=== PATIENT | female | born 1955 | race Caucasian/White ===

== ENCOUNTER 2022-03-30 21:22 | Inpatient (IN) ==
[2022-03-30 21:47] LABS: Basophils # 0.1 10*3/uL (0.0-0.2); Basophils % 0.6 % (0.0-0.8); Eosinophils # 0.2 10*3/uL (0.0-0.87); Eosinophils % 1.8 % (0.00-10.9); Immature Granulocytes % 0.6 %; Immature Granulocytes Absolute 0.07 #; Lymphocytes # 1.3 10*3/uL (1.4-4.0); Mean Corpuscular HGB Conc 28.1 GM/DL (32-36); Mean Corpuscular Volume 80.5 FL (87-102); Mean Platelet Volume 8.7 FL (9.6-12.0); Monocytes # 0.9 10*3/uL (0.11-0.8); Monocytes % 7.6 % (1.7-12.7); NRBC # 0.02 10*3/uL; Neutrophils % 78.4 % (38.7-73.9); Platelet Count 454 T/CUMM (130-400); Red Blood Count 2.21 MC/CUMM (3.8-5.5); Red Cell Distribution Width 16.4 % (9.3-17.3); White Blood Count 11.6 T/CUMM (4-12)
[2022-03-30 21:49] LABS: Hematocrit 17.8 VOL% (35.7-47.0)
[2022-03-30] MEDS ORDERED: LIDOCAINE 1%/EPI INJ 20 ML VIAL ONE (21:52)
[2022-03-30] MEDS ORDERED: ONDANSETRON 4 MG/2 ML VIAL IV STA (21:53)
[2022-03-30] MEDS ORDERED: PANTOPRAZOLE 40 MG VIAL IV STA (21:53)
[2022-03-30] MEDS ORDERED: SODIUM CHLORIDE 0.9% 1,000 ML IV PRN (21:55)
[2022-03-30 22:06] LABS: Alanine Aminotransferase 19 U/L (13-56); Albumin 3.8 G/DL (3.4-5.0); Alkaline Phosphatase 99 U/L (45-117); Aspartate Amino Transferase 13 U/L (0-37); Bilirubin,Total < 0.39 MG/DL (0.20-1.00); Blood Urea Nitrogen 19 MG/DL (7-18); Calcium 8.3 MG/DL (8.5-10.1); Carbon Dioxide 26 MMOL/L (21-32); Chloride 105 MMOL/L (98-107); Glucose 130 MG/DL (74-106); Osmolality,Calculated 282.4 MOS/KG (273-304); Potassium 4.1 MMOL/L (3.5-5.1); Sodium 140 MMOL/L (136-145); Total Protein 7.3 G/DL (6.4-8.2)
[2022-03-30 22:09] LABS: INR 0.9; PT Patient Result 10.4 SECS (10.1-12.1); Partial Thromboplastin Time 21.4 SECS (23.7-32.9)
[2022-03-30 22:13] LABS: Anisocytosis 1+; Hypochromia 1+; Macrocytosis 1+; Microcytosis 1+; Platelet Estimate Increased
[2022-03-30 22:14] LABS: Target Cells Slight
[2022-03-30] MEDS ORDERED: ONDANSETRON 4 MG/2 ML VIAL IV PRN (23:21)
[2022-03-30] MEDS ORDERED: hydrALAZINE 20 MG/1 ML VIAL IV PRN (23:21)
[2022-03-30] MEDS ORDERED: MORPHINE 2 MG/1 ML SYRINGE IV PRN (23:21)
[2022-03-30] MEDS ORDERED: guaiFENesin/DM ER 600-30 MG TABLET PO PRN (23:21)
[2022-03-30] MEDS ORDERED: ACETAMINOPHEN 325 MG TABLET PO PRN (23:21)
[2022-03-30] MEDS ORDERED: diphenhydrAMINE CAP 25 MG CAPSULE PO PRN (23:21)
[2022-03-30] MEDS ORDERED: NICOTINE 21 MG/24 HR PATCH TRANSDERM PRN (23:21)
[2022-03-31 01:06] LABS: Bacteria,Urine Occasional /HPF (Few); Mucus,Urine Occasional /LPF (Occasional); RBC,Urine 1 /HPF (0-4); Squamous Epithelial Cell,Urine Occasional /HPF (0-10)
[2022-03-31 01:07] LABS: Bilirubin,Urine Negative (Negative); Blood, Urine Negative (Negative); Glucose,Urine (UA) Negative (Negative); Ketones,Urine Negative (Negative); Nitrite,Urine Negative (Negative); Protein,Urine Trace mg/dL (Negative); Urine Appearance Clear (Clear); Urine Color Yellow (Yellow); Urine Specific Gravity 1.025 (1.001-1.035); Urine Urobilinogen 0.2 eU/dL (<2.0); Urine pH 5.5 (4.5-8.0)
[2022-03-31] MEDS ORDERED: FUROSEMIDE 20 MG/2 ML VIAL IV STA (02:45)
[2022-03-31] MEDS ORDERED: FUROSEMIDE 40 MG/4 ML VIAL IV STA (02:48)
[2022-03-31 04:04] LABS: Basophils # 0.1 10*3/uL (0.0-0.2); Basophils % 0.6 % (0.0-0.8); Eosinophils # 0.2 10*3/uL (0.0-0.87); Eosinophils % 1.4 % (0.00-10.9); Hematocrit 21.2 VOL% (35.7-47.0); Immature Granulocytes % 0.4 %; Immature Granulocytes Absolute 0.05 #; Lymphocytes # 2.3 10*3/uL (1.4-4.0); Lymphocytes % 20.6 % (21.3-54.2); Mean Corpuscular HGB Conc 29.2 GM/DL (32-36); Mean Corpuscular Volume 82.5 FL (87-102); Monocytes # 0.8 10*3/uL (0.11-0.8); Monocytes % 7.3 % (1.7-12.7); NRBC # 0.02 10*3/uL; Neutrophils % 69.7 % (38.7-73.9); Platelet Count 433 T/CUMM (130-400); Red Blood Count 2.57 MC/CUMM (3.8-5.5); White Blood Count 11.3 T/CUMM (4-12)
[2022-03-31 04:07] LABS: Hemoglobin 6.2 GM/DL (12.0-16.0)
[2022-03-31 04:17] LABS: Calcium 8.7 MG/DL (8.5-10.1); Osmolality,Calculated 278.5 MOS/KG (273-304); Potassium 3.7 MMOL/L (3.5-5.1)
[2022-03-31] MEDS ORDERED: NITROGLYCERIN SL 0.4 MG TABLET SL PRN (06:23)
[2022-03-31 08:27] LABS: % Iron Saturation 11.8 % (18-50); Ferritin 5.9 ng/mL (8-252)
[2022-03-31] MEDS ORDERED: PANTOPRAZOLE 40 MG TABLET PO SCH (09:00)
[2022-03-31] MEDS: PANTOPRAZOLE 40 MG VIAL IV SCH ×2 (09:05→20:12)
[2022-03-31] MEDS: carvediloL 6.25 MG TABLET PO SCH ×3 (09:08→20:15)
[2022-03-31] MEDS: ESCITALOPRAM 10 MG TABLET PO SCH ×2 (09:09→12:22)
[2022-03-31] MEDS: amLODIPine 2.5 MG TABLET PO SCH ×2 (09:09→12:22)
[2022-03-31] MEDS: ISOSORBIDE MONONITRATE 30 MG TABLET PO SCH ×2 (09:09→12:21)
[2022-03-31] MEDS: LACTATED RINGERS 1,000 ML IV SCH (09:54)
[2022-03-31 09:56] LABS: Hematocrit 25.7 VOL% (35.7-47.0); Hemoglobin 7.6 GM/DL (12.0-16.0)
[2022-03-31] MEDS ORDERED: ETOMIDATE 20 MG/10 ML VIAL IV ONE (10:37)
[2022-03-31] MEDS ORDERED: LIDOCAINE 2% 5 ML VIAL ONE (10:37)
[2022-03-31] MEDS ORDERED: propofoL 200 MG/20 ML VIAL IV ONE (10:37)
[2022-03-31] MEDS ORDERED: ONDANSETRON 4 MG/2 ML VIAL ONE (10:58)
[2022-03-31] MEDS ORDERED: EPINEPHrine 1 MG/ML VIAL ONE (11:11)
[2022-03-31 14:32] LABS: Hematocrit 26.1 VOL% (35.7-47.0); Hemoglobin 7.7 GM/DL (12.0-16.0)
[2022-03-31] MEDS: ROSUVASTATIN 20 MG TABLET PO SCH (20:15)
[2022-03-31] MEDS: POLYETHYLENE GLYCOL POWDER 17 GM PACK PO SCH (20:15)
[2022-03-31 21:21] LABS: Hematocrit 25.2 VOL% (35.7-47.0); Hemoglobin 7.6 GM/DL (12.0-16.0)
[2022-04-01 05:44] LABS: Calcium 8.8 MG/DL (8.5-10.1); Osmolality,Calculated 278.5 MOS/KG (273-304); Potassium 3.6 MMOL/L (3.5-5.1)
[2022-04-01 05:46] LABS: Basophils # 0.1 10*3/uL (0.0-0.2); Basophils % 0.8 % (0.0-0.8); Eosinophils # 0.3 10*3/uL (0.0-0.87); Eosinophils % 3.5 % (0.00-10.9); Hematocrit 25.5 VOL% (35.7-47.0); Hemoglobin 7.6 GM/DL (12.0-16.0); Immature Granulocytes % 0.5 %; Immature Granulocytes Absolute 0.04 #; Lymphocytes # 2.6 10*3/uL (1.4-4.0); Mean Corpuscular HGB Conc 29.8 GM/DL (32-36); Mean Corpuscular Volume 80.2 FL (87-102); Mean Platelet Volume 9.4 FL (9.6-12.0); Monocytes # 0.8 10*3/uL (0.11-0.8); Monocytes % 8.8 % (1.7-12.7); NRBC # 0.02 10*3/uL; Neutrophils % 56.4 % (38.7-73.9); Platelet Count 411 T/CUMM (130-400); Red Blood Count 3.18 MC/CUMM (3.8-5.5); Red Cell Distribution Width 17.3 % (9.3-17.3); White Blood Count 8.8 T/CUMM (4-12)
[2022-04-01 08:42] LABS: Hematocrit 24.6 VOL% (35.7-47.0); Hemoglobin 7.4 GM/DL (12.0-16.0)
[2022-04-01] MEDS: ISOSORBIDE MONONITRATE 30 MG TABLET PO SCH (09:44)
[2022-04-01] MEDS: amLODIPine 2.5 MG TABLET PO SCH (09:44)
[2022-04-01] MEDS: carvediloL 6.25 MG TABLET PO SCH ×2 (09:44→22:04)
[2022-04-01] MEDS: POLYETHYLENE GLYCOL POWDER 17 GM PACK PO SCH ×2 (09:44→22:04)
[2022-04-01] MEDS: ESCITALOPRAM 10 MG TABLET PO SCH (09:44)
[2022-04-01] MEDS: PANTOPRAZOLE 40 MG VIAL IV SCH ×2 (09:45→22:04)
[2022-04-01] MEDS: NICOTINE 21 MG/24 HR PATCH TRANSDERM SCH (09:45)
[2022-04-01] MEDS: LACTATED RINGERS 1,000 ML IV SCH (11:52)
[2022-04-01 15:01] LABS: Hematocrit 24.3 VOL% (35.7-47.0); Hemoglobin 7.1 GM/DL (12.0-16.0)
[2022-04-01 20:21] LABS: Hematocrit 24.1 VOL% (35.7-47.0); Hemoglobin 7.1 GM/DL (12.0-16.0)
[2022-04-01] MEDS: ROSUVASTATIN 20 MG TABLET PO SCH (22:04)
[2022-04-02 05:51] LABS: Basophils # 0.1 10*3/uL (0.0-0.2); Basophils % 0.6 % (0.0-0.8); Eosinophils # 0.4 10*3/uL (0.0-0.87); Eosinophils % 3.4 % (0.00-10.9); Hematocrit 24.7 VOL% (35.7-47.0); Immature Granulocytes % 0.4 %; Immature Granulocytes Absolute 0.05 #; Lymphocytes # 2.9 10*3/uL (1.4-4.0); Lymphocytes % 25.6 % (21.3-54.2); Mean Corpuscular HGB Conc 28.3 GM/DL (32-36); Mean Platelet Volume 9.4 FL (9.6-12.0); Monocytes # 0.9 10*3/uL (0.11-0.8); Monocytes % 7.9 % (1.7-12.7); Neutrophils % 62.1 % (38.7-73.9); Platelet Count 386 T/CUMM (130-400); Red Blood Count 3.05 MC/CUMM (3.8-5.5); Red Cell Distribution Width 17.7 % (9.3-17.3); White Blood Count 11.3 T/CUMM (4-12)
[2022-04-02 05:57] LABS: Calcium 8.5 MG/DL (8.5-10.1); Osmolality,Calculated 275.8 MOS/KG (273-304); Potassium 3.8 MMOL/L (3.5-5.1)
[2022-04-02 06:28] LABS: Platelet Estimate Normal
[2022-04-02 06:29] LABS: Anisocytosis 1+; Hypochromia Slight; Spherocytes Few
[2022-04-02] MEDS ORDERED: SODIUM CHLORIDE 0.9% 1,000 ML IV PRN (07:33)
[2022-04-02] MEDS: ISOSORBIDE MONONITRATE 30 MG TABLET PO SCH ×2 (10:00→10:32)
[2022-04-02] MEDS: carvediloL 6.25 MG TABLET PO SCH ×3 (10:00→20:02)
[2022-04-02] MEDS: ESCITALOPRAM 10 MG TABLET PO SCH (10:00)
[2022-04-02] MEDS: PANTOPRAZOLE 40 MG VIAL IV SCH (10:01)
[2022-04-02] MEDS: NICOTINE 21 MG/24 HR PATCH TRANSDERM SCH ×2 (10:01→10:33)
[2022-04-02] MEDS: POLYETHYLENE GLYCOL POWDER 17 GM PACK PO SCH ×3 (10:01→20:02)
[2022-04-02] MEDS: amLODIPine 2.5 MG TABLET PO SCH (10:01)
[2022-04-02] MEDS: LACTATED RINGERS 1,000 ML IV SCH (10:02)
[2022-04-02] MEDS: ASPIRIN CHEW 81 MG TABLET PO SCH (12:35)
[2022-04-02 19:47] LABS: Hematocrit 28.2 VOL% (35.7-47.0)
[2022-04-02 19:53] LABS: Hemoglobin 8.5 GM/DL (12.0-16.0)
[2022-04-02] MEDS: ROSUVASTATIN 20 MG TABLET PO SCH (20:02)
[2022-04-02] MEDS: PANTOPRAZOLE 40 MG TABLET PO SCH (20:02)
[2022-04-03 05:02] LABS: Basophils # 0.1 10*3/uL (0.0-0.2); Basophils % 0.6 % (0.0-0.8); Eosinophils # 0.4 10*3/uL (0.0-0.87); Eosinophils % 3.6 % (0.00-10.9); Hematocrit 29.1 VOL% (35.7-47.0); Hemoglobin 8.6 GM/DL (12.0-16.0); Immature Granulocytes % 0.6 %; Immature Granulocytes Absolute 0.07 #; Lymphocytes # 2.5 10*3/uL (1.4-4.0); Lymphocytes % 21.7 % (21.3-54.2); Mean Corpuscular HGB Conc 29.6 GM/DL (32-36); Mean Corpuscular Volume 82.4 FL (87-102); Mean Platelet Volume 8.9 FL (9.6-12.0); Monocytes % 9.2 % (1.7-12.7); Neutrophils % 64.3 % (38.7-73.9); Platelet Count 365 T/CUMM (130-400); Red Blood Count 3.53 MC/CUMM (3.8-5.5); Red Cell Distribution Width 17.7 % (9.3-17.3); White Blood Count 11.3 T/CUMM (4-12)
[2022-04-03 05:22] LABS: Calcium 8.6 MG/DL (8.5-10.1); Osmolality,Calculated 283.1 MOS/KG (273-304); Potassium 3.9 MMOL/L (3.5-5.1)
[2022-04-03] MEDS: carvediloL 6.25 MG TABLET PO SCH (08:28)
[2022-04-03] MEDS: POLYETHYLENE GLYCOL POWDER 17 GM PACK PO SCH (08:28)
[2022-04-03] MEDS: NICOTINE 21 MG/24 HR PATCH TRANSDERM SCH (08:28)
[2022-04-03] MEDS: ASPIRIN CHEW 81 MG TABLET PO SCH (08:28)
[2022-04-03] MEDS: ESCITALOPRAM 10 MG TABLET PO SCH (08:28)
[2022-04-03] MEDS: PANTOPRAZOLE 40 MG TABLET PO SCH (08:29)
[2022-04-03] MEDS: amLODIPine 2.5 MG TABLET PO SCH (08:29)
[2022-04-03] MEDS ORDERED: ISOSORBIDE MONONITRATE 30 MG TABLET PO SCH (09:00)
[2022-04-03 09:47] VITALS: BP 145/65
== END 2022-04-03 12:06 | disposition home or self-care (01) | DRG 378 ==
LOC: N.ED 21:22 → N.EDINP 23:21 → OBSVTOIN 23:21 → SUATTDRO 23:21 → INTOOBSV 23:21 → N.TELEN 03-31 12:15 → N.2W 03-31 12:15 → N.TELEN 03-31 12:21 → UNDODISIN 04-03 12:06
PROVIDERS: ADMIT Internal Medicine; ATTEND Internal Medicine